=== PATIENT | male | born 1925 | race Caucasian/White ===

== ENCOUNTER → 2016-06-21 | Outpatient (CLI) | payer BC ==
[~2016-06-21] MED LIST: ASCO1CAP3 PO; CHOL100027 PO; CLOP1TAB15 PO; HYDC25 PO; IRBE-39 PO; LECI1CAP6 PO; MULTTAB58 PO; SIMV40TA2 PO; VENL150T33 PO; ZYP25 PO
[2016-06-21 12:26] LABS: HEMATOCRIT 39.9 % (42-52); MEAN CELL VOLUME 91.7 fL (80-100); MEAN CORPUSCULAR HEMOGLOBIN 31.3 pg (25-34); MEAN CORPUSCULAR HGB CONC 34.1 g/dl (32-36); MEAN PLATELET VOLUME 10.4 fL (7.4-10.4); PLATELET COUNT 191 K/uL (130-400); RED BLOOD COUNT 4.35 M/uL (4.7-6.1); WHITE BLOOD COUNT 5.79 K/uL (4.8-10.8)
[2016-06-21 13:04] LABS: ALB/GLOB RATIO 1.1 (0.9-2); ALKALINE PHOSPHATASE 58 U/L (45-117); ALT/SGPT 22 U/L (12-78); AST/SGOT 14 U/L (15-37); BLOOD UREA NITROGEN 27 mg/dl (7-18); CARBON DIOXIDE 29 mmol/L (21-32); CHLORIDE 103 mmol/L (98-107); GLUCOSE 104 mg/dl (70-99); HDL CHOLESTEROL 62 mg/dl; POTASSIUM 3.8 mmol/L (3.5-5.1); SODIUM 140 mmol/L (136-145)
[2016-06-21 13:18] LABS: CHOLESTEROL 150 mg/dl (0-200); CHOLESTEROL/HDL RATIO 2.4; LDL CHOLESTEROL CALCULATED 57 mg/dl; THYROID STIMULATING HORMONE 0.932 uIu/ml (0.300-4.500); TRIGLYCERIDES 155 mg/dl (0-150); VERY LOW DENSITY LIPOPROT CALC 31 mg/dl
== END | disposition home or self-care (01) ==
LOC: C.LABBFT 07:40
PROVIDERS: ATTEND Internal Medicine
DX: I12.9 Hypertensive chronic kidney disease with stage 1 through stage 4 chronic kidney disease, or unspecified chronic kidney disease (principal); N18.9 Chronic kidney disease, unspecified; E78.5 Hyperlipidemia, unspecified

== ENCOUNTER → 2016-08-22 | Outpatient (CLI) | payer BC ==
--- NOTE | 2016-08-22 14:19 | DIAGNOSTIC IMAGING REPORT ---
AP PELVIS AND LEFT HIP 3 VIEWS CLINICAL HISTORY: Left hip pain COMPARISON STUDY: No previous studies for comparison. FINDINGS: No acute fractures are visualized. There are no destructive lesions. There are moderate osteoarthritic changes with superior joint space narrowing. 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 IMPRESSION: 1. No acute fractures 2. 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 Electronically signed by: Michael Silverman M.D. 08/22/2016 2:17 PM Dictated Date/Time: 08/22/2016 2:16 PM
== END | disposition home or self-care (01) ==
LOC: C.RAD1850 13:56
PROVIDERS: ATTEND Internal Medicine
DX: M25.552 Pain in left hip (principal); R10.2 Pelvic and perineal pain

== ENCOUNTER → 2016-09-27 | Outpatient (CLI) | payer BC ==
--- NOTE | 2016-09-27 12:00 | DIAGNOSTIC IMAGING REPORT ---
FLUOROSCOPICALLY GUIDED LEFT HIP INTRA-ARTICULAR STEROID INJECTION CLINICAL HISTORY: Left hip degenerative joint disease. Pain. FLUOROSCOPY TIME: 14 seconds. PROCEDURE: The procedure, risks and benefits were discussed with the patient and informed written consent was obtained. The procedure was performed by Dr. Rodriguez following a timeout. Skin overlying the left hip was prepped and draped in sterile fashion and local anesthesia was achieved with 1% lidocaine. Under intermittent fluoroscopic guidance, a 3 1/2 inch 22-gauge spinal needle was directed into left hip joint. Positioning within the joint space was confirmed with injection of 1 cc of Optiray 300. At this time, a mixture of 8 cc of Marcaine and 2 cc of Celestone was injected into the left hip joint. The needle was removed. The patient tolerated the procedure well and no immediate complications were evident. IMPRESSION: Fluoroscopically guided left hip intra-articular injection of 2 cc of Celestone and 8 cc of Marcaine. Electronically signed by: Josh Rodriguez M.D. 09/27/2016 11:58 AM Dictated Date/Time: 09/27/2016 11:57 AM
== END | disposition home or self-care (01) ==
LOC: C.RADBC 10:21
PROVIDERS: ATTEND Orthopaedic Surgery
DX: M16.52 Unilateral post-traumatic osteoarthritis, left hip (principal)

== ENCOUNTER → 2016-12-29 | Outpatient (CLI) | payer BC ==
[2016-12-29 12:15] LABS: HEMATOCRIT 40.4 % (42-52); MEAN CELL VOLUME 93.5 fL (80-100); MEAN CORPUSCULAR HEMOGLOBIN 31.3 pg (25-34); MEAN CORPUSCULAR HGB CONC 33.4 g/dl (32-36); MEAN PLATELET VOLUME 10.5 fL (7.4-10.4); PLATELET COUNT 181 K/uL (130-400); RED BLOOD COUNT 4.32 M/uL (4.7-6.1); WHITE BLOOD COUNT 5.06 K/uL (4.8-10.8)
[2016-12-29 12:30] LABS: ALT/SGPT 23 U/L (12-78); AST/SGOT 12 U/L (15-37); BLOOD UREA NITROGEN 25 mg/dl (7-18); BUN/CREATININE RATIO 18.9 (10-20); CALCIUM 8.8 mg/dl (8.5-10.1); CARBON DIOXIDE 28 mmol/L (21-32); CHLORIDE 106 mmol/L (98-107); GLUCOSE 101 mg/dl (70-99); SODIUM 140 mmol/L (136-145)
[2016-12-29 12:41] LABS: ALB/GLOB RATIO 1.1 (0.9-2); ALKALINE PHOSPHATASE 74 U/L (45-117); CHOLESTEROL 142 mg/dl (0-200); CHOLESTEROL/HDL RATIO 2.3; HDL CHOLESTEROL 61 mg/dl; LDL CHOLESTEROL CALCULATED 61 mg/dl; TRIGLYCERIDES 102 mg/dl (0-150); VERY LOW DENSITY LIPOPROT CALC 20 mg/dl
== END | disposition home or self-care (01) ==
LOC: C.LABBFT 09:05
PROVIDERS: ATTEND Internal Medicine
DX: N18.9 Chronic kidney disease, unspecified (principal); E78.5 Hyperlipidemia, unspecified; I10 Essential (primary) hypertension

== ENCOUNTER → 2017-01-29 | Outpatient (CLI) | payer BC ==
--- NOTE | 2017-01-29 11:34 | DIAGNOSTIC IMAGING REPORT ---
ULTRASOUND OF THE CAROTID ARTERIES CLINICAL HISTORY: Carotid artery stenosis. COMPARISON STUDY: Carotid artery ultrasound dated 02/13/2014. TECHNIQUE: Real-time, grayscale, and color Doppler sonography of the carotid arteries is performed. Images are reviewed in the transverse and longitudinal planes. FINDINGS: Blood pressure in the right arm measures 110/79 and blood pressure in the left arm measures 106/62. The carotid arteries are patent bilaterally and demonstrate antegrade flow. There is moderate echogenic shadowing atherosclerotic plaque seen in the carotid bulbs bilaterally. Normal doppler arterial waveforms are seen throughout. The cardiac pulsations appear irregular. Velocity measurements are listed below. Common carotid peak systolic velocity (cm/sec): RIGHT: 124 LEFT: 116 ICA proximal peak systolic velocity (cm/sec): RIGHT: 96 LEFT: 98 ICA mid peak systolic velocity (cm/sec): RIGHT: 84 LEFT: 118 ICA distal peak systolic velocity (cm/sec): RIGHT: 57 LEFT: 73 ICA/CC peak systolic ratio: RIGHT: 0.8 LEFT: 1.0 Antegrade flow was shown in the vertebral arteries. The external carotid arteries are patent. IMPRESSION: 1. Atherosclerotic plaque with no sonographic evidence of hemodynamically significant stenosis in the right or left carotid arterial system. 2. Antegrade flow is shown in the vertebral arteries. 3. The cardiac pulsations appear irregular suggesting arrhythmia. Correlation with clinical findings and EKG is recommended. Electronically signed by: Alexis Schaffer M.D. 01/29/2017 11:33 AM Dictated Date/Time: 01/29/2017 11:30 AM
== END | disposition home or self-care (01) ==
LOC: C.ULTR 10:43
PROVIDERS: ATTEND Internal Medicine
DX: I65.23 Occlusion and stenosis of bilateral carotid arteries (principal); I65.09 Occlusion and stenosis of unspecified vertebral artery

== ENCOUNTER → 2017-06-15 | Outpatient (CLI) | payer BC ==
--- NOTE | 2017-06-15 13:38 | DIAGNOSTIC IMAGING REPORT ---
L KNEE 4 OR MORE VIEWS HISTORY: 89 years-old Male M25.562 Left knee [id number] acute left knee pain COMPARISON: None available TECHNIQUE: 5 views of the left knee FINDINGS: The bones appear mildly demineralized. 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 Moderate osteophyte is present along the superior portion of the patella at the quadriceps insertion site. Small joint effusion. No acute fracture or dislocation. Peripheral vascular disease. IMPRESSION: 1. Small joint effusion without acute fracture or dislocation. 2. Mild to moderate degenerative changes about the knee. 3. Peripheral vascular disease. The above report was generated using voice recognition software. It may contain grammatical, syntax or spelling errors. Electronically signed by: Ryne Hood M.D. 06/15/2017 1:37 PM Dictated Date/Time: 06/15/2017 1:35 PM
--- NOTE | 2017-06-15 13:41 | DIAGNOSTIC IMAGING REPORT ---
L ANKLE MIN 3 VIEWS ROUTINE CLINICAL HISTORY: M25.572 Left ankle [id number] trauma. Pain. COMPARISON: None. DISCUSSION: Tiny ossific fragments adjacent to the tip of the medial as well as lateral malleolus. Age is uncertain. Ankle mortise is aligned anatomically. All remaining osseous structures are unremarkable. Soft tissue vascular calcifications are present. There is no evidence for soft tissue swelling. IMPRESSION: Small ossific fragments adjacent to the tips of the medial as well as lateral malleolus of uncertain age. Study is otherwise negative. The above report was generated using voice recognition software. It may contain grammatical, syntax or spelling errors. Electronically signed by: Danilo Darby M.D. 06/15/2017 1:40 PM Dictated Date/Time: 06/15/2017 1:39 PM
== END | disposition home or self-care (01) ==
LOC: C.RAD1850 13:13
PROVIDERS: ATTEND Internal Medicine
DX: M25.562 Pain in left knee (principal); M25.462 Effusion, left knee; I73.9 Peripheral vascular disease, unspecified